=== PATIENT | male | born 1950 | race Native Hawaiian/Other Pacific Islander ===

== ENCOUNTER 2016-03-22 09:25 | Outpatient (CLI) | payer OTHER | END 2016-03-22 19:11 | disposition home or self-care (01) | LOC: RAD 09:25 | DX: Z95.828 Presence of other vascular implants and grafts (principal); R10.84 Generalized abdominal pain ==

== ENCOUNTER 2021-07-14 08:11 | Outpatient (CLI) | payer OTHER | END 2021-07-14 19:00 | disposition home or self-care (01) | LOC: RAD 08:11 | PROVIDERS: ATTEND Nurse Practitioner Family | DX: M54.59 Other low back pain (principal); M25.551 Pain in right hip; M25.552 Pain in left hip ==